=== PATIENT | female | born 2000 | race Caucasian/White ===

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

== ENCOUNTER 2022-03-04 09:29 | Emergency (ER) | payer OTHER, SELFPAY ==
--- NOTE | 2022-03-04 09:33 | ED.URI ---
HPI - URI/Sore Throat General Stated Complaint: Headache Time Seen by Provider: 03/04/22 09:32 Source: patient Mode of arrival: ambulatory Limitations: no limitations History of Present Illness HPI Narrative: Ms. Ho is a 21-year-old female patient presenting to the clinic today with complaints of chills, dizziness, cough, chest discomfort with coughing, body aches, mild sore throat, and headache x2 days. She reports that they have been exposed to influenza. She denies any fever. Related Data Home Medications Medication Instructions Recorded Confirmed No Home Medications 03/04/22 03/04/22 Allergies Allergy/AdvReac Type Severity Reaction Status Date / Time No Known Allergies Allergy Verified 03/04/22 09:45 Review of Systems Review of Systems: Pertinent positives per HPI. Patient denies any fever, rash, visual changes, dizziness, runny nose, sore throat, shortness of breath, chest pain, palpitations, nausea, vomiting, diarrhea, constipation, abdominal pain, or any urinary issues. PMFSH Past Medical History Medical History Retained products of conception Family History Family History Other No pertinent family history Social History Social History Smoking status: Never smoker Substance use: never Gender identity (if verbalized by the patient): Female Spiritual care concerns: No Comments At the time of my signature, I reviewed and agree with the nursing past medical, surgical, social, and family history. There is no relevant family history pertinent to the patient complaint. Exam Narrative: General: Well-developed, well nourished, in no apparent distress Head: Normocephalic, atraumatic Eyes: Pupils equally round and reactive to light bilaterally, EOM intact, sclera and conjunctive clear, no discharge, lids normal Ears: TMs intact and clear, ear canals clear, no drainage, grossly hearing normal. Nose: Nares patent, no discharge, no inflammation, no sinus tenderness. Mouth: Oropharynx without lesions or masses, good dentition, MMM. Oropharynx mildly red Neck: Supple, trachea midline, no enlargement of anterior or posterior cervical nodes, no thyroid masses or goiter palpable. Cardio: Regular rate and rhythm, s1 and s2 normal, no murmur appreciated. Resp: Clear to auscultation bilaterally anteriorly and posteriorly, no rhonchi, rales, wheezing or rubs Course Course Emergency Course: Portions of this record may have been created with voice recognition software. Level of Care: Express Care Visit Vital Signs Vital signs: Vital signs reviewed MDM - URI/Sore Throat MDM Narrative Medical decision making narrative: At the time of visit patient is resting comfortably on exam table. COVID, strep, and influenza testing completed in the clinic. Differential Diagnosis Differential diagnosis: Likely upper respiratory infection, otitis media, sinusitis, viral infection, bronchitis, influenza, pharyngitis and other (COVID) Discharge Plan Discharge Patient Disposition: Home, Self-Care Condition: Stable Instructions: Antibiotic Form Additional Instructions: Take prescription medications only as prescribed Increase fluids and stay well hydrated Tylenol/motrin for pain/fever Flonase and OTC antihistamines as directed Vicks vapor rub to open sinuses Sinus rinses for congestion Cepacol spray, cough drops, throat lozenges, warm tea with honey/lemon, gargle salt water to soothe throat BRAT diet for diarrhea Clear liquids x 24 hours then advance as tolerated for nausea/vomiting May return to the clinic if symptoms worsen Go to the ED if you develop a worsening in your condition- high fever not controlled by Tylenol or Motrin, dehydration, weakness, lethargy, shortness of breath, or chest pa
[2022-03-04 09:44] VITALS: BP 107/64; PULSE 98; RESP 16; TEMP 37.1; O2SAT 100
== END 2022-03-04 10:27 | disposition home or self-care (01) ==
PROVIDERS: Emergency Provider Nurse Practitioner Family; PCP Pediatrics
DX: B34.9 Viral infection, unspecified (principal); Z20.822 Contact with and (suspected) exposure to COVID-19
CPT/HCPCS: 87081; 87426; 87804; 87880; 99213; C9803; G0463

== ENCOUNTER 2022-07-09 10:06 | Emergency (ER) | payer OTHER, SELFPAY ==
[2022-07-09 10:12] VITALS: BP 108/55; PULSE 100; RESP 16; TEMP 37.2; O2SAT 100
--- NOTE | 2022-07-09 10:32 | ED.URI ---
HPI - URI/Sore Throat General Chief Complaint: Upper Respiratory Infection Stated Complaint: Ear Pain Time Seen by Provider: 07/09/22 10:32 Source: patient and RN notes reviewed Mode of arrival: ambulatory Limitations: no limitations History of Present Illness HPI Narrative: 21 y/o female presents for complaints of left ear pain and a sore throat that started yesterday. Patient states that she had some congestion about one week ago, and currently has an infrequent, mild, nonproductive cough. Patient has attempted Tylenol once at 4 am with some relief. Reports sister had strep throat a few weeks ago and she is concerned that she may now have this too. Denies fever, SOB, wheezing, N/V/D. Endorses mild chest tightness only when she coughs. Patient took a home COVID test two weeks ago that was negative. MD elicited complaint: cough Related Data Home Medications Medication Instructions Recorded Confirmed No Home Medications 03/04/22 07/09/22 Allergies Allergy/AdvReac Type Severity Reaction Status Date / Time No Known Allergies Allergy Verified 07/09/22 10:25 Review of Systems Review of Systems: CONSTITUTIONAL: Denies malaise, chills, sweats, fever EYES: Denies visual changes, redness, or discharge ENT: Denies rhinorrhea. Reports bilateral otalgia-left worse than right. Endorses sore throat. CARDIOVASCULAR: Denies palpitations, edema. Reports CP only when she coughs. RESPIRATORY: Reports infrequent mild nonproductive cough. Denies dyspnea GASTROINTESTINAL: Denies abdominal pain, nausea, vomiting, diarrhea PMFSH Past Medical History Medical History Retained products of conception Family History Family History Other No pertinent family history Social History Social History Smoking status: Never smoker Substance use: never Gender identity (if verbalized by the patient): Female Spiritual care concerns: No Exam Narrative: GENERAL: Well-appearing EYES: PERRLA, conjunctivae clear ENT: Mucous membranes pink and moist. TM pearly moreno with positive light reflex bilaterally. Mild left sided tragal tenderness. Oropharynx erythematous without lesions or exudate, no drooling, no hoarseness, no trismus, uvula midline. No tripod positioning, muffled voice, soft palate or pharyngeal wall bulging NECK: Supple. No lymphadenopathy CHEST: Clear to auscultation, breath sounds equal. HEART: Regular rate and rhythm. SKIN: Warm, dry, no rash. Course Course Emergency Course: Patient is aware of diagnosis, understands and agrees to treatment plan. Anticipatory guidance given. Patient agrees to follow-up as directed and is aware of reasons to seek care at the emergency department. Portions of this record may have been created with voice recognition software Level of Care: Express Care Visit Vital Signs Vital signs: Vital Signs Temperature 98.9 F 07/09/22 10:12 Pulse Rate 100 07/09/22 10:12 Respiratory Rate 16 07/09/22 10:12 Blood Pressure 108/55 L 07/09/22 10:12 Pulse Oximetry 100 07/09/22 10:12 Oxygen Delivery Room Air 07/09/22 10:12 Temperature 98.9 F 07/09/22 10:12 Pulse Rate 100 07/09/22 10:12 Respiratory Rate 16 07/09/22 10:12 Blood Pressure 108/55 L 07/09/22 10:12 Pulse Oximetry 100 07/09/22 10:12 Oxygen Delivery Room Air 07/09/22 10:12 reviewed MDM - URI/Sore Throat MDM Narrative Medical decision making narrative: Discussed negative strep test results and normal bilateral ear exam. Patient is in stable condition and appropriate for outpatient follow up and treatment. Discussed the need of establishing care with a PCP. Recommend supportive measures. S/s to report to ED. Differential Diagnosis Differential diagnosis: Likely upper respiratory infection, sinusitis and viral infection Lab D
== END 2022-07-09 11:14 | disposition home or self-care (01) ==
PROVIDERS: Emergency Provider Nurse Practitioner Family
DX: J30.9 Allergic rhinitis, unspecified (principal)
CPT/HCPCS: 87081; 87880; 99213; G0463

== ENCOUNTER 2022-12-25 11:41 | Emergency (ER) | payer OTHER, SELFPAY ==
[2022-12-25 11:49] VITALS: BP 117/64; PULSE 109; RESP 16; TEMP 36.7; O2SAT 98
--- NOTE | 2022-12-25 12:23 | ED.URI ---
HPI - URI/Sore Throat General Chief Complaint: Upper Respiratory Infection Stated Complaint: Sore Throat/Cough Time Seen by Provider: 12/25/22 12:17 Source: patient and RN notes reviewed Mode of arrival: ambulatory Limitations: no limitations History of Present Illness HPI Narrative: Patient presents today with a 2 day history of sore throat and postnasal drip. Denies any additional symptoms to include fever, cough, congestion, rhinorrhea. Daughter was diagnosed with strep 8 days ago. Currently rates her pain 5/10 and has not tried any [id number] medication for symptoms prior to arrival Related Data Home Medications Medication Instructions Recorded Confirmed No Home Medications 03/04/22 07/09/22 Allergies Allergy/AdvReac Type Severity Reaction Status Date / Time No Known Allergies Allergy Verified 07/09/22 10:25 Review of Systems Review of Systems: CONSTITUTIONAL: Denies body aches, fever, chills, or sweats. EYES: Denies visual changes, redness, or discharge. ENT: Denies rhinorrhea, congestion, or otalgia.+ sore throat, postnasal drip CARDIOVASCULAR: Denies chest pain, palpitations, or edema. RESPIRATORY: Denies cough or dyspnea. GASTROINTESTINAL: Denies abdominal pain, nausea, vomiting, or diarrhea. GENITOURINARY: Denies dysuria or hematuria. SKIN: Denies rash, itching, or wounds. MUSCULOSKELETAL: Denies back pain, joint pain, or myalgia. NEUROLOGIC: Denies headache, numbness, tingling, or weakness. PSYCH: Denies depression or anxiety. [facility] Past Medical History Medical History (Updated 12/25/22 @ 12:28 by Brenda Hastings, PINO, ) Retained products of conception Family History Family History Other No pertinent family history Social History Social History Smoking status: Never smoker Substance use: never Gender identity (if verbalized by the patient): Female Spiritual care concerns: No Comments At time of signature, I have reviewed and agree with nursing past medical, surgical, social and family history unless otherwise noted. Please see nursing chart for further information. There is no relevant family history pertinent to the presenting complaint Exam Narrative: GENERAL: Well-appearing, well-nourished, and in no acute distress. HEAD: Normocephalic, atraumatic. EYES: EOMI. No redness or drainage. Conjunctivae normal. ENT: Mucous membranes pink and moist. Nares clear. No rhinorrhea. TMs normal bilaterally. Throat normal. Uvula midline. NECK: Normal AROM. Supple. No lymphadenopathy. CHEST: No respiratory distress. Clear to auscultation. HEART: Regular rate and rhythm. No murmur appreciated. EXTREMITIES: Normal range of motion. No edema. SKIN: Warm, dry, no rash. Capillary refill normal. Normal skin turgor. NEURO: No focal deficits. Alert and oriented x3. Gait steady. PSYCH: Normal affect. No signs of depression or anxiety. Course Course Level of Care: Express Care Visit Vital Signs Vital signs: Vital Signs Temperature 98.1 F 12/25/22 11:49 Pulse Rate 109 H 12/25/22 11:49 Respiratory Rate 16 12/25/22 11:49 Blood Pressure 117/64 12/25/22 11:49 Pulse Oximetry 98 12/25/22 11:49 Oxygen Delivery Room Air 12/25/22 11:49 Temperature 98.1 F 12/25/22 11:49 Pulse Rate 109 H 12/25/22 11:49 Respiratory Rate 16 12/25/22 11:49 Blood Pressure 117/64 12/25/22 11:49 Pulse Oximetry 98 12/25/22 11:49 Oxygen Delivery Room Air 12/25/22 11:49 Reviewed MDM - URI/Sore Throat MDM Narrative Medical decision making narrative: Rapid strep negative. Culture pending. Symptoms likely viral. No prescription medications indicated at this time. Anticipatory guidance given. Differential Diagnosis Differential diagnosis: Likely upper respiratory infection, viral infection, pharyngitis and other (Strep throat, rhinitis) L
== END 2022-12-25 12:33 | disposition home or self-care (01) ==
PROVIDERS: Emergency Provider Nurse Practitioner
DX: J06.9 Acute upper respiratory infection, unspecified (principal)
CPT/HCPCS: 87081; 87880; 99213; G0463

== ENCOUNTER 2024-03-07 12:51 | Emergency (ER) | payer OTHER, SELFPAY ==
[2024-03-07 12:58] VITALS: BP 114/62; PULSE 106; RESP 16; TEMP 37.6; O2SAT 98
--- NOTE | 2024-03-07 13:00 | ED.GENADULT ---
HPI - General Adult General Chief complaint: Upper Respiratory Infection Stated complaint: fever/achey/throat Time Seen by Provider: 03/07/24 13:00 Source: patient, RN notes reviewed and old records reviewed Mode of arrival: ambulatory Limitations: no limitations History of Present Illness HPI narrative: 23-year-old female to Express Care for complaint of sore throat and fever for 2 days. Patient reports that temperature has come up to 102.6?. Patient has attempted to treat at home with Tylenol, last took 7 hours ago. Patient states that her father is getting a COVID test so that she can test herself at home. Patient denies allergies, prescription medications, pertinent medical history, shortness of breath, cough, chest pain, ear pain, GI complaints. Patient able to tolerate fluids by mouth. Respirations even nonlabored. Patient able to speak in full sentences without difficulty. Patient in no acute distress. Related Data Home Medications Medication Instructions Recorded Confirmed No Home Medications 03/04/22 07/09/22 Allergies Allergy/AdvReac Type Severity Reaction Status Date / Time No Known Allergies Allergy Verified 07/09/22 10:25 Review of Systems Review of Systems: All systems reviewed & are unremarkable except as noted in HPI and below Constitutional: Constitutional: Reports as per HPI and Reports fever(s) Eyes: Eyes: Reports no additional eye complaints ENT: Reports as per HPI and Reports sore throat Cardiovascular: Cardiovascular: Reports no additional cardiovascular complaints, Denies chest pain and Denies dyspnea Respiratory: Respiratory: Reports no additional respiratory complaints, Denies cough and Denies dyspnea Musculoskeletal: Musculoskeletal: Reports no additional musculoskeletal complaints Neurologic: Reports system reviewed and no additional complaints, except as documented Psychiatric: Psychiatric: Reports no additional psychiatric complaints [facility] Past Medical History Medical History Retained products of conception Family History Family History Other No pertinent family history Social History Social History Smoking status: Never smoker Substance use: never Gender identity (if verbalized by the patient): Female Spiritual care concerns: No Comments At the time of my signature, I reviewed and agree with the nursing past medical, surgical, social, and family history. There is no relevant family history pertinent to the patient complaint. Exam Const: General: cooperative, no acute distress, alert, tired appearing, uncomfortable and well nourished Nutritional Appearance: well nourished Orientation/consciousness: patient oriented x3 Limitations: no limitations HENMT: Head: normal to inspection Ears: external ears normal Face/Nose/Sinus: Normal external nose present, Normal nares present, normal facial exam, No erythema and No edema Face and sinus: normal facial exam, no erythema and no edema Mouth: Yes Normal oral and palatal mucosa present Throat: posterior oropharynx abnormal erythema Eyes: General: appearance normal, both eyes and all related structures Neck: Neck: normal visual inspection, full ROM and no meningeal signs Lymphatic: no lymphadenopathy noted and no lymphedema noted Chest: Chest palpation & inspection: normal inspection of the chest Resp: Effort & Inspection: normal respiratory effort and able to speak in complete sentences Auscultation: clear to auscultation bilaterally Cardio: Jugular venous distension: no JVD Rate: regular rate Rhythm: regular rhythm Back/Spine/Pelvis: Cervical Spine: cervical ROM normal Skin: General skin exam: normal color, no rashes or lesions noted and turgor normal Neuro: General: patient oriented x3, gait normal, moves all extr
[2024-03-07 13:26] LABS: EDSTREPNEGPOS1 Presumptive Negative
== END 2024-03-07 13:26 | disposition home or self-care (01) ==
PROVIDERS: Emergency Provider Nurse Practitioner Family
DX: B34.9 Viral infection, unspecified (principal)
CPT/HCPCS: 87081; 87880; 99213; G0463

== ENCOUNTER 2024-06-14 12:42 | Emergency (ER) | payer OTHER, SELFPAY ==
[2024-06-14 12:55] VITALS: BP 105/53; PULSE 84; RESP 16; TEMP 36.8; O2SAT 99
--- NOTE | 2024-06-14 13:17 | ED.URI ---
HPI - URI/Sore Throat General Chief Complaint: Upper Respiratory Infection Stated Complaint: Sore Throat History of Present Illness HPI Narrative: 23-year-old female presented for complaint of sore throat, nasal congestion and headache. Onset 5 days. Says daughter diagnosed with strep today. Denies shortness of breath, wheezing, nausea, vomiting, diarrhea, fevers or lethargy. Related Data Home Medications Medication Instructions Recorded Confirmed No Home Medications 03/04/22 07/09/22 Allergies Allergy/AdvReac Type Severity Reaction Status Date / Time No Known Allergies Allergy Verified 07/09/22 10:25 Review of Systems Review of Systems: CONSTITUTIONAL: Denies body aches, fever, chills, or sweats. EYES: Denies visual changes, redness, or discharge. ENT: reports sore throat, rhinorrhea, congestion, Denies otalgia. CARDIOVASCULAR: Denies chest pain, palpitations, or edema. RESPIRATORY: Denies dyspnea. GASTROINTESTINAL: Denies abdominal pain, nausea, vomiting, or diarrhea. SKIN: Denies rash, itching, or wounds. MUSCULOSKELETAL: Denies back pain, joint pain, or myalgia. NEUROLOGIC: reports headache PMFSH Past Medical History Medical History Retained products of conception Family History Family History Other No pertinent family history Social History Social History Smoking status: Never smoker Substance use: never Gender identity (if verbalized by the patient): Female Spiritual care concerns: No Exam Narrative: GENERAL: well-appearing, no acute distress. EYES: conjunctivae clear ENT: Mucous membranes moist. TMs pearly moreno with normal light reflex bilaterally; no tragal tenderness. Oropharynx not erythematous without lesions. Tonsils not enlarged and without exudate. No drooling, no hoarseness, no trismus, uvula midline. No tripod positioning, hot potato voice, or soft palate swelling. NECK: Supple. No lymphadenopathy CHEST: Clear to auscultation, breath sounds equal. No respiratory distress, speaks in full sentences. HEART: Regular rate and rhythm. No murmur heard. SKIN: Warm, dry, no rash. NEURO: Alert and oriented x3. Course Course Emergency Course: Patient is aware of diagnosis, understands and agrees to treatment plan. Anticipatory guidance given. Patient agrees to follow-up as directed and is aware of reasons to seek care at the emergency department. Portions of this record may have been created with voice recognition software Level of Care: Express Care Visit Vital Signs Vital signs: Vital Signs Temperature 98.3 F 06/14/24 12:55 Pulse Rate 84 06/14/24 12:55 Respiratory Rate 16 06/14/24 12:55 Blood Pressure 105/53 L 06/14/24 12:55 Pulse Oximetry 99 06/14/24 12:55 Oxygen Delivery Room Air 06/14/24 12:55 Temperature 98.3 F 06/14/24 12:55 Pulse Rate 84 06/14/24 12:55 Respiratory Rate 16 06/14/24 12:55 Blood Pressure 105/53 L 06/14/24 12:55 Pulse Oximetry 99 06/14/24 12:55 Oxygen Delivery Room Air 06/14/24 12:55 MDM - URI/Sore Throat MDM Narrative Medical decision making narrative: Neg strep result reviewed with pt. Advise supportive treatments. Patient is appropriate for outpatient treatment and follow-up. Differential Diagnosis Differential diagnosis: Likely upper respiratory infection, viral infection and pharyngitis Discharge Plan Discharge Clinical Impression: Upper respiratory infection Patient Disposition: Home, Self-Care Condition: Stable Instructions: Antibiotic Form, Upper Respiratory Infection (ED) Additional Instructions: Rapid strep swab was negative today You will be notified in a few days if the culture comes back positive for strep, and appropriate antibiotics will be called in at that time. if symptoms are due
[2024-06-14 13:28] LABS: EDSTREPNEGPOS1 Negative (Negative)
== END 2024-06-14 13:35 | disposition home or self-care (01) ==
PROVIDERS: Emergency Provider Nurse Practitioner Family
DX: J06.9 Acute upper respiratory infection, unspecified (principal)
CPT/HCPCS: 87081; 87880; 99213; G0463

== ENCOUNTER 2025-03-02 15:30 | Emergency (ER) | payer OTHER, SELFPAY ==
[2025-03-02 15:48] VITALS: BP 100/65; RESP 16; TEMP 36.9; O2SAT 100
[2025-03-02 16:20] LABS: EDINFLUASCREEN Negative (Negative); EDINFLUBSCREEN Negative (Negative)
[2025-03-02 16:29] LABS: EDSTREPNEGPOS1 Negative (Negative)
--- NOTE | 2025-03-02 19:19 | ED.NAVMDI ---
HPI - Nausea/Vomiting/Diarrhea General Chief complaint: Nausea/Vomiting/Diarrhea Stated complaint: Chills/Headache/Body Aches Time Seen by Provider: 03/02/25 15:45 Source: patient and RN notes reviewed Mode of arrival: ambulatory Limitations: no limitations History of Present Illness HPI Narrative: 24-year-old female presents Express Care complaining of congestion, cough, sore throat, nausea, diarrhea approximately 2 days. Patient denies any fevers, body aches, chills, chest pain, shortness of breath, wheezing, or vomiting, or abdominal pain. Denies any urinary symptoms. Patient has not tried anything [id number] to help with symptoms. Patient denies any blood in her stools. Reports having loose stools. Related Data Allergies Allergy/AdvReac Type Severity Reaction Status Date / Time No Known Allergies Allergy Verified 03/02/25 15:43 Review of Systems Review of Systems: CONSTITUTIONAL: Denies fever, chills, or sweats. EYES: Denies visual changes, redness, or discharge. ENT: Denies rhinorrhea,, or otalgia. Positive for congestion, sore throat. CARDIOVASCULAR: Denies chest pain, palpitations, or edema. RESPIRATORY: Positive for cough. Negative for dyspnea, shortness of breath. GASTROINTESTINAL: Denies abdominal pain, nausea, hematochezia, melena, or diarrhea. Positive for nausea and diarrhea. GENITOURINARY: Denies dysuria or hematuria. SKIN: Denies rash or itching. MUSCULOSKELETAL: Denies back pain, joint pain, or myalgia. NEUROLOGIC: Denies headache, numbness, or weakness. PSYCHIATRIC: Denies anxiety or depression. All other systems reviewed are negative, except as documented in HPI. [facility] Past Medical History Medical History (Updated 03/02/25 @ 16:22 by Sebastián Bowden APRN) Retained products of conception Family History Family History Other No pertinent family history Social History Social History Smoking status: Never smoker Substance use: never Gender identity (if verbalized by the patient): Female Spiritual care concerns: No Comments At the time of my signature, I reviewed and agree with the nursing past medical, surgical, social, and family history. There is no relevant family history pertinent to the patient complaint. Exam Narrative: GENERAL: This is a well-nourished, well-developed adult, in no apparent distress. They are non ill-appearing, nontoxic appearing. HEAD: normocephalic, atraumatic. EYES: Sclera clear/white. Conjunctiva normal. Vision is grossly intact. Extraocular movements intact EARS: External ears normal, auditory canals clear and without drainage, TMs normal without perforation. Hearing grossly intact. NOSE: External nose normal with no obvious nasal discharge, nasal turbinates erythematous, no rhinorrhea. THROAT: Mucous membranes moist, posterior pharynx erythemic, without with delete that swelling. Uvula midline. NECK: Neck supple, non-tender without lymphadenopathy, masses or thyromegaly. CARDIOVASCULAR: Regular rate and rhythm without murmurs, gallops, or rubs. RESPIRATORY: Clear to auscultation. Breath sounds equal bilaterally. No wheezes, rales, or rhonchi. GASTROINTESTINAL: Abdomen soft, non-tender, nondistended. Bowel sounds are active. No hepato-splenomegaly, or palpable masses. No guarding. SKIN: warm, Dry, intact with no suspicious lesions or rash, good texture and turgor. NEURO: awake, alert, and oriented to person, place and time. There were no obvious focal neurologic abnormalities. EXTREMITIES: No joint tenderness, effusion, or edema noted. BACK: Nontender without deformity. No CVA tenderness. Course Course Emergency Course: Portions of this record may have been created with voice recognition software Level of Care: Express Care Visit Vital Signs Vital signs: Vital Signs Temperature 98.4 F 03/02/25 15:48 Respiratory Rate 16 03/02/25 15:48 Blood Pressure 100/65 03/02/25 15:48 Pulse Oximetry 100 03/02/25 15:48 Oxygen Delivery Room Air 03/02/25 15:48 Temperature 98.4 F 03/02/25 15:48 Respiratory Rate 16 03/02/25 15:48 Blood Pressure 100/65 03/02/25 15:48 Pulse Oximetry 100 03/02/25 15:48 Oxygen Delivery Room Air 03/02/25 15:48 Reviewed MDM - Nausea/Vomiting/Diarrhea MDM Narrative Medical decision making narrative: Rapid strep negative. Flu negative. Throat culture pending. Likely viral gastroenteritis or viral illness. No peritoneal findings. Will prescribe Zofran as needed for nausea. Discussed physical exam findings. Advised supportive measures and signs/symptoms to go to the ER. Pt is appropriate for outpt treatment and f/u. Differential Diagnosis Differential diagnosis: Likely gastroenteritis and other (Rotavirus, norovirus, upper respiratory infection, viral illness) Lab Data Attestation: I reviewed the patient's lab results. Labs: Lab Results 03/02/25 03/02/25 Range/Units 16:10 16:18 POC Influenza A Ag Negative (Negative) POC Influenza B Ag Negative (Negative) POC Grp A Strep Screen Negative (Negative) Critical Care Time Critical Care Time Critical Care Time: No Discharge Plan Discharge Clinical Impression: Viral illness Patient Disposition: Home Condition: Stable Instructions: Gastroenteritis (ED), Viral Syndrome (ED) Additional Instructions: Your flu and strep were negative. Throat culture will be sent off and is positive for strep you will be contacted and started on appropriate antibiotics. It is likely have a viral gastroenteritis. This is normally a self-limiting condition or resolve within 24-48 hours. However sometimes symptoms may linger on up to 7 days. It is recommended not to take anything for the diarrhea and allow the diarrhea to run its course. If the diarrhea persist and you feeling better, you may take Pepto-Bismol as needed to help control the diarrhea. Recommend hydration with plenty of fluids electrolyte supplementation such as Pedialyte. Follow-up PCP in 3-5 days. You may take Zofran as needed for nausea or vomiting. Your unable to keep anything down, you developed abdominal pain, fevers, uncontrollable diarrhea, concerns of dehydration, breathing problems, or any other concerns please go to the ER immediately. 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
== END 2025-03-02 16:25 | disposition home or self-care (01) ==
DX: B34.9 Viral infection, unspecified (principal)
CPT/HCPCS: 87081; 87804; 87880; 99213; G0463